=== PATIENT | male | born 1925 | race Caucasian/White ===

== ENCOUNTER 2017-01-30 22:11 | Emergency (ER) | payer MEDICARE, OTHER ==
[~2017-01-30 22:11] MED LIST: ACET500CAP PO; ACULARLS OPH; ARICEPT10 PO; ASAB PO; BACDS PO; CALTRA600D PO; COMBIGAN0.2 MG/0.5 OP; DITROXL5 PO; DOK100 MG PO; DSS PO; DUONEB INH; FESO4 PO; FOSAMAX70 MG PO; HCTZ25B PO; ICAPS LUTEIN PO; IMOD PO; IRON325 MG PO; LISINOPRIL40 MG PO; LOTEMAX0.5 % OP; LOTREL1 CAP PO; MEVACOR PO; MEVACOR40 MG PO; MIRALAXPKT PO; MOMUD PO; MULTIPLE VIT PO; MURO1282% OPH; NORV5 PO; PREDNISONE; PRILO PO; ROMYCIN OPH; SIN25 PO; T PO; TOPXL25 PO; TYLENOL SEVE OR; TYLENOL SEVE PO; VITAMIN D1000 UNI1 PO; XALAT OPH; ZOL100 PO; ZYMAR OPH; [UNRECOGNIZED DRUG - OTHER] OR; [UNRECOGNIZED DRUG - OTHER] PO
[2017-01-30 22:55] LABS: BE (BASE EXCESS) -1.5 MEQ/L (0 +/- 2.5); CARBOXYHEMOGLOBIN 1.5 % (0-3); DEVICE NC; HCO3 (ACTUAL BICARBONATE) 24.9 MEQ/L (23-27); INSTRUMENT SERIAL # 8087; METHEMOGLOBIN 0.3 % (0-3); O2 CONTENT 17.1 VOL% (18-24); PCO2 (CO2 TENSION) 48 MMHG (35-45); PO2 (O2 TENSION) 76 MMHG (79-93); SAMPLE Arterial; pH 7.33 (7.37-7.43)
[2017-01-30 22:56] LABS: WBC (NOT ORDERED) (RFLEX) 0 (0-5)
[2017-01-30 23:01] LABS: BASOPHILS 0.3 %; BASOPHILS ABSOLUTE 0.02 10/3/uL (0.0-0.16); EOSINOPHILS 1.3 %; ER CBC TAT 0 Hrs 10 MinsNP; HEMOGLOBIN 12.6 g/dL (13.6-17.8); IMMATURE GRANULOCYTES 0.1 %; IMMATURE GRANULOCYTES ABSOLUTE 0.01 10/3/uL (0.0-0.11); LYMPHOCYTES 17.1 %; LYMPHOCYTES ABSOLUTE 1.33 10/3/uL (0.67-4.30); MANUAL DIFF NO %; MEAN CORPUS HGB CONC 32.3 g/dL (32.0-36.0); MEAN CORPUSCULAR HEMOGLOB 31.3 pg (26.0-34.0); MEAN CORPUSCULAR VOLUME 96.8 fL (80-100); MEAN PLATELET VOLUME 11.1 fL (9.2-13.0); MONOCYTES 8.1 %; MONOCYTES ABSOLUTE 0.63 10/3/uL (0.21-1.20); NEUTROPHILS 73.1 %; PLATELET COUNT 176 10/3/uL (150-400); RBC DISTRIBUTION WIDTH 13.8 % (12.0-16.0); RED CELL COUNT 4.03 10/6/uL (4.7-6.1); WHITE BLOOD CELLS 7.8 10/3/uL (4.5-10.5)
[2017-01-30 23:04] LABS: ASCORBIC ACID (UR NOT ORDER) 40 (NEG); BILIRUBIN, URINE NEGATIVE (NEG); ER URINALYSIS TAT 0 Hrs 13 Mins; KETONE, URINE TRACE MG/DL (NEG); LEUKOCYTE ESTERASE(NOT OR NEG (NEG); NITRITE (URINE) NEG (NEG)
[2017-01-30 23:09] LABS: INTERNATIONAL NORMAL RATI 1.2 UNITS (-); PARTIAL THROMBO TIME 28.6 SEC (22.5-37.2); PROTIME (NOT ORD) 14.7 SEC (12.0-14.5)
[2017-01-30 23:18] LABS: ALBUMIN 3.6 G/DL (3.5-5.0); ALKALINE PHOSPHATASE 62 U/L (45-117); CALCIUM, SERUM 8.6 MG/DL (8.5-10.4); CHLORIDE, SERUM 113 MMOL/L (96-112); CO2 (CARBON DIOXIDE) 29 MMOL/L (24-34); CREATININE 0.85 MG/DL (0.70-1.30); GFR AFRICAN AMERICAN 90 ML/MIN (>=60); GFR NON AFRICAN AMERICAN 77 ML/MIN (>=60); GLOBULIN 3.7 G/DL (2.5-4.1); POTASSIUM, SERUM 4.8 MMOL/L (3.5-5.3); SGOT(AST) 15 U/L (5-40); SGPT(ALT) 9 U/L (5-65); SODIUM, SERUM 145 MMOL/L (135-148); TOTAL BILIRUBIN 0.4 MG/DL (0-1.2); TOTAL PROTEIN 7.3 G/DL (6.0-8.5); TROPONIN I <0.02 NG/ML (<0.05)
[2017-01-30 23:18] LABS: AMPHETAMINES (NOT ORD) NEG (NEG); BARBITURATES (NOT ORDERED NEG (NEG); BENZODIAZEPINES (NOT ORD) NEG (NEG); CANNABINOIDS (THC) NEG (NEG); COCAINE (NOT ORDERED) NEG (NEG); OPIATES NEG (NEG); PHENCYCLIDINE(PCP) NEG (NEG); TRICYCLICS NEG (NEG)
[2017-01-30 23:19] LABS: ACETAMINOPHEN LEVEL (TYLENOL) < 2.0 MCG/ML (10.0-20.0); ALCOHOL < 10 MG/DL (0); BUN (BLOOD UREA NITROGEN) 18 MG/DL (6-23); GLUCOSE, SERUM 112 MG/DL (60-99); SALICYLATE < 1.7 MG/DL (-)
[2017-07-06] MEDS ORDERED: ASAB PO (03:30)
[2017-07-06] MEDS ORDERED: CALTRA600D PO (03:30)
[2017-07-06] MEDS ORDERED: DOCUSOFT S100 MG PO (03:31)
[2017-07-06] MEDS ORDERED: SIN25 PO (03:31)
[2017-07-06] MEDS ORDERED: ARICEPT10 PO (03:32)
[2017-07-06] MEDS ORDERED: FERROUS SULF325 M1 PO (03:32)
[2017-07-06] MEDS ORDERED: FLONASE NAS (03:33)
[2017-07-06] MEDS ORDERED: ACET500CAP PO (03:34)
[2017-07-06] MEDS ORDERED: MEVACOR PO (03:34)
[2017-07-06] MEDS ORDERED: MULTIPLE VIT PO (03:35)
[2017-07-06] MEDS ORDERED: XALAT OPH (03:36)
[2017-07-06] MEDS ORDERED: ZOL50 PO (03:36)
[2017-07-06] MEDS ORDERED: BACTRIM DS1 TAB PO (03:39)
== END 2017-01-31 02:37 | disposition home or self-care (01) ==
LOC: ER 22:11
PROVIDERS: Emergency Medicine
DX: G20 Parkinson's disease (principal); I10 Essential (primary) hypertension; F32.9 Major depressive disorder, single episode, unspecified; Z95.1 Presence of aortocoronary bypass graft; Z88.8 Allergy status to other drugs, medicaments and biological substances; Z79.82 Long term (current) use of aspirin; Z79.899 Other long term (current) drug therapy
CPT/HCPCS: 36600; 70450; 71010; 80053; 80305; 80307; 81001; 82805; 83880; 84484; 85025; 85610; 85730; 93005; 99285